=== PATIENT | male | born 1990 | race Caucasian/White ===

== ENCOUNTER 2019-12-23 01:08 | Emergency (ER) | payer OTHER ==
[~2019-12-23] VITALS: Ht 193 cm; Wt 102.1 kg
[2019-12-23] MEDS ORDERED: LIDOCAINE HCL 2% 20 ML VIAL TP ONE (02:00)
[2019-12-23 02:01] VITALS: BP 142/79
--- NOTE | 2019-12-23 02:01 | NUR ---
Patient discharged to home in stable condition. Written and verbal after care instructions given. Patient verbalizes understanding of instructions. Stressed follow up or return to ER for worsening s/s.
== END 2019-12-23 02:02 | disposition home or self-care (01) ==
LOC: ER 01:17
PROC: 0HQBXZZ Repair Right Upper Arm Skin, External Approach (ICD-10-PCS; principal; 2019-12-23)
DX: S41.111A Laceration without foreign body of right upper arm, initial encounter (principal); W31.1XXA Contact with metalworking machines, initial encounter; Y93.89 Activity, other specified; Y92.61 Building [any] under construction as the place of occurrence of the external cause; Y99.0 Civilian activity done for income or pay; Z88.0 Allergy status to penicillin